=== PATIENT | female | born 1925 | race Caucasian/White ===

== ENCOUNTER 2016-09-30 09:07 | Emergency (ER) | payer MEDICARE, OTHER ==
[2016-09-30] MEDS ORDERED: TRAMADOL 50 MG TAB ONE (13:21)
== END 2016-09-30 14:15 | disposition home or self-care (01) ==
LOC: ER 09:07
CPT/HCPCS: 70450; 71020; 72125; 72170

== ENCOUNTER 2016-10-29 22:04 | Emergency (ER) | payer MEDICARE, OTHER | END 2016-10-30 01:11 | disposition home or self-care (01) | LOC: ER 22:04 | DX: B02.33 Zoster keratitis (principal) | CPT/HCPCS: 36415; 71020; 80053; 81003; 82553; 83690; 84484; 85025; 93005 ==